=== PATIENT | male | born 1965 ===

== ENCOUNTER 2025-01-10 05:48 | Day surgery (SDC) | payer OTHER ==
[2025-01-10 06:20] VITALS: RESP 16
[2025-01-10] MEDS: Ak-Dilate OPHTHALMIC*** 0.71 ML, Cyclogyl 1% OPHTH SOL 0.71 ML, GATIFLOXACIN 0.5% OPHTH... OP SCH (06:32)
[2025-01-10] MEDS: TETRACAINE 0.5% STERI-UNIT SOL OP ONE ×2 (06:32→06:43)
[2025-01-10 06:52] LABS: Calcium 9.3 mg/dL (8.4-10.2); Carbon Dioxide 22.0 mmol/L (22-30); Creatinine 1 1.02 mg/dL (0.66-1.25); EST GLOMERULAR FILTRATION RATE 83.6 ML/MIN; Glucose 168.0 mg/dL (74-106); Potassium 4.3 mmol/L (3.5-5.1)
[2025-01-10] MEDS ORDERED: propofoL IV ONE (08:59)
[2025-01-10] MEDS ORDERED: Xylocaine-Mpf 2% 5 Ml Vial ONE (09:00)
[2025-01-10] MEDS: ACETAZOLAMIDE 250 MG TABLET PO ONE (09:28)
[2025-01-10 09:33] VITALS: PULSE 73
[2025-01-10 09:37] VITALS: BP 96/51; TEMP 96.7; O2SAT 95
[2025-01-10] MEDS ORDERED: VIGAMOX/BSS 0.15% SYR IO NR (10:30)
[2025-01-10] MEDS ORDERED: BETADINE 5% OPHTHALMIC 30 ML OP NR (10:30)
[2025-01-10] MEDS ORDERED: Visionblue IO ONE (10:30)
[2025-01-10] MEDS ORDERED: TRIAMCINOLONE 15 MG/ML INJ INTRAOP NR (10:30)
[2025-01-10] MEDS ORDERED: Epinephrine Preservative Free 1 MG/ML INTRAOP NR (10:30)
[2025-01-10] MEDS ORDERED: DEXMEDETOMIDINE 80 MCG/20ML-NS IV NR (10:30)
[2025-01-10] MEDS ORDERED: Zofran 4 MG/2 ML VIAL IV PRN (10:30)
== END 2025-01-10 09:43 | disposition home or self-care (01) ==
LOC: SDC 05:48
PROVIDERS: ATTEND Ophthalmology
DX: H25.812 Combined forms of age-related cataract, left eye (principal); E11.9 Type 2 diabetes mellitus without complications